=== PATIENT | male | born 1995 | race Caucasian/White ===

== ENCOUNTER 2018-06-29 01:48 | Emergency (ER) | payer OTHER ==
[2018-06-29 01:56] VITALS: BP 147/86
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
[2018-06-29] MEDS ORDERED: BACITRACIN OINT TOP ONE (02:19)
[2018-06-29] MEDS ORDERED: BACITRACIN OINT TOP STA (02:20)
== END 2018-06-29 02:22 | disposition home or self-care (01) ==
LOC: ED 01:48
DX: S01.312A Laceration without foreign body of left ear, initial encounter (principal); S00.83XA Contusion of other part of head, initial encounter; S00.511A Abrasion of lip, initial encounter; Y04.0XXA Assault by unarmed brawl or fight, initial encounter; Y92.009 Unspecified place in unspecified non-institutional (private) residence as the place of occurrence of the external cause
CPT/HCPCS: 12011; 99282; 99283; A9270

== ENCOUNTER 2021-06-26 08:00 | Outpatient (CLI) | payer OTHER | END 2021-06-26 23:59 | LOC: LAB 08:00 | PROVIDERS: ATTEND Family Medicine | DX: U07.1 COVID-19 (principal) ==

== ENCOUNTER 2022-01-25 16:41 | Emergency (ER) | payer OTHER ==
[2022-01-25 16:58] VITALS: BP 170/74
--- NOTE | 2022-01-25 17:32 | ED Physician Documentation ---
History of Present Illness - Stated complaint Stated Complaint: R HEEL WOUND/POST-OP - Chief complaint Chief Complaint: Wound - Additonal information Additional information: 26-year-old male presents emergency department for evaluation of right heel pain. He underwent outpatient excision of multiple heel warts 3 days ago. The retirement sales consultant had recommended that the patient be nonweightbearing on the foot and avoid close toed shoes. The [employer] has declined to allow the patient to be nonweightbearing and has insisted that he wear his regular work duty boots. Patient reports that the pain is unbearable. 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 Review of Systems Constitutional: reports: Reviewed and negative Nose: reports: Reviewed and negative Throat: reports: Reviewed and negative Cardiac: reports: Reviewed and negative Respiratory: reports: Reviewed and negative Skin: reports: Lesions Neurologic: reports: Reviewed and negative PD PAST MEDICAL HISTORY - Past Surgical History Past Surgical History: No - Present Medications Home Medications: Ambulatory Orders Medication Instructions Recorded Confirmed No Known Home Medications 06/29/18 06/29/18 - Allergies Allergies/Adverse Reactions: Allergies Allergy/AdvReac Type Severity Reaction Status Date / Time clarithromycin [From Biaxin] Allergy Unknown Verified 01/25/22 16:58 - Social History Does the pt smoke?: Yes Smoking Status: Current every day smoker Does the pt drink ETOH?: Yes Does the pt have substance abuse?: No - Immunizations Immunizations are current?: Yes Immunizations: TDAP current <10years - POLST Patient has POLST: No PD ED PE NORMAL - General General: Alert and oriented X 3, No acute distress - Derm Derm: Other (right heel with a 1 cm surgical incision/ulceration. black base. no surrounding erythema. very tender to touch) Results - Vitals Vitals: Vital Signs - 24 hr 01/25/22 16:54 Temperature 36.4 C L Heart Rate 109 H Respiratory 18 Rate Blood Pressure 170/74 H O2 Saturation 96 Oxygen O2 Source Room air PD MEDICAL DECISION MAKING - ED course Complexity details: considered differential, d/w patient ED course: 26-year-old male presents emergency department for evaluation of worsening right heel pain. He underwent surgical excision of a plantar wart. His surgeon had advised him to be nonweightbearing and off the foot for about 2 weeks however the [employer] has declined this request and he has been required to work and wear his full work duty boots On exam the excised area has no surrounding erythema though is quite tender to touch. I have no doubt that remaining off the foot will help benefit healing and help prevent infection. 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 Emergent return precautions were discussed for concerns of infection Departure - Departure Disposition: 01 Home, Self Care Clinical Impression: Pain of right heel Condition: Stable Record reviewed to determine appropriate education?: Yes Comments: Vasiliy lundberg were seen today in the emergency department for pain in the right heel. You recently underwent a surgical excision of some warts. The wound does appear to be healing but I have no doubt that if you continue to work in the boots that you will develop surrounding infection and inflammation. My recommendation is to follow the surgeons orders. You should be nonweightbearing of this foot for 2 weeks. If appropriate desk duty could be considered as an alternative to your usual activities. We have given you a postoperative shoe to wear when possible for desk duties but it is not safe to wear when working on or around aircraft. Return to the ER if you develop heel swelling, redness have fevers milky drainage. Continue your routine wound care as already being practiced
== END 2022-01-25 17:39 | disposition home or self-care (01) ==
LOC: ED 16:41
DX: M79.671 Pain in right foot (principal); F17.200 Nicotine dependence, unspecified, uncomplicated
CPT/HCPCS: 99282

== ENCOUNTER 2023-03-25 22:07 | Emergency (ER) | payer OTHER ==
--- NOTE | 2023-03-25 22:56 | ED Physician Documentation ---
History of Present Illness - Stated complaint Stated Complaint: LT SHOULDER PX - Chief complaint Chief Complaint: Ext Problem - History obtained from History obtained from: Patient - Additonal information Additional information: HPI from patient. Patient complains of left shoulder and left upper back pain since waking up this morning. The pain is distinctly worse with movement involving the left arm at the shoulder, and, to lesser extent, movement of his neck. Patient is right- hand dominant. Patient denies history of similar symptoms. Patient denies recent injury. He says that the pain occasionally radiates down the arm to the fingers, sometimes with paresthesias. Review of Systems Constitutional: denies: Fever Cardiac: denies: Chest pain / pressure Respiratory: denies: Dyspnea, Hemoptysis Skin: denies: Rash Musculoskeletal: reports: Joint pain. denies: Back pain, Extremity swelling, Joint swelling Neurologic: denies: Focal weakness, Numbness, Headache PD PAST MEDICAL HISTORY - Past Medical History Past Medical History: Yes Psych: Depression, Anxiety Derm: Other Other Past Medical History: Hair loss - Past Surgical History Past Surgical History: No General: Appendectomy, Other HEENT: Tonsil/Adenoidectomy - Present Medications Home Medications: Ambulatory Orders Medication Instructions Recorded Confirmed Finasteride [Propecia] 1 mg PO DAILY 03/25/23 03/25/23 Fluoxetine HCl 80 mg PO DAILY 03/25/23 03/25/23 - Allergies Allergies/Adverse Reactions: Allergies Allergy/AdvReac Type Severity Reaction Status Date / Time clarithromycin [From Biaxin] Allergy Unknown Verified 03/25/23 22:15 - Social History Does the pt smoke?: Yes Smoking Status: Current every day smoker Does the pt drink ETOH?: Yes Does the pt have substance abuse?: No - Immunizations Immunizations are current?: Yes Immunizations: TDAP current <10years - POLST Patient has POLST: No PD ED PE NORMAL - Vitals Vital signs reviewed: Yes - General General: Alert and oriented X 3, No acute distress, Well developed/nourished - Neck Neck: Supple, no meningeal sign, No bony TTP - Respiratory Respiratory: No respiratory distress, Clear bilaterally - Derm Derm: Normal color, Warm and dry, No rash - Extremities Extremities: No edema - Neuro Neuro: No motor deficit, No sensory deficit PD ED PE EXPANDED - Extremities Extremities: Limited ROM (limited ROM left shoulder (abduction, extension) due to exacerbation of pain with these movements). No: Tenderness, Swelling, Bruising Results - Vitals Vitals: Oxygen O2 Source Room air PD Medical Decision Making - ED course Complexity details: considered differential, d/w patient ED course: There is no tenderness to palpation of the neck nor the left shoulder. He does exhibit mild limitation in ROM left shoulder as noted above (due to exacerbation of pain). He describes occasional pain along the left trapezius muscle/ridge. NVI on exam, no recent injury. Emergent testing is unlikely to yield diagnosis and/or change (conservative/expectant) management, which is rest and analgesics PRN, follow up with PCP, return to ED precautions. Differential diagnosis includes cervical radiculopathy, bursitis, tendinitis. Arthritis unlikely given patient's young age. Departure - Departure Disposition: 01 Home, Self Care Clinical Impression: Cervical radiculopathy Instructions: ED Cervical Radiculopathy, ED Shoulder Pain [facility] Follow-Up: DAMIEN CHENG MD [Primary Care Provider] - Within 1 week Comments: Testing from the emergency basis is not indicated at this time. The most likely causes of your pain are things that would not show up on the tests available in the ER. This would include nerve impingement such as cervical radiculopathy (instructions/information on this diagnosis are provided within this discharge packet), bursitis, tendinitis. You can take ibuprofen per label instructions ([id number]) as needed for the discomfort. Contact your primary care provider's office in the morning to arrange for next available appointment for reevaluation. Further testing might be indicated from the outpatient perspective. Certainly, if your symptoms worsen, or if you develop new/concerning signs/symptoms (such as fever, severe pain that is not adequately improved with [id number] medication such as ibuprofen, fever, redness of the joint, you can always return to the emergency department for reevaluation on an emergency basis). Forms: PCP List Discharge Date/Time: 03/25/23 23:30
[2023-03-26 00:10] VITALS: BP 167/115; O2SAT 99
== END 2023-03-25 23:30 | disposition home or self-care (01) ==
LOC: ED 22:07
DX: M54.12 Radiculopathy, cervical region (principal); F17.200 Nicotine dependence, unspecified, uncomplicated
CPT/HCPCS: 99282; 99283